=== PATIENT | male | born 1945 | race Caucasian/White ===

== ENCOUNTER → 2016-09-15 | Outpatient (CLI) | payer BC ==
[~2016-09-15] MED LIST: ASPI81TA28 PO; ATOR-22 PO; INSUINJ4; MULT-884 PO; MXZC25 PO
[2016-09-15 12:45] LABS: ESTIMATED AVERAGE GLUCOSE 226 mg/dl; HA1C FLAG Normal (Normal)
[2016-09-15 13:23] LABS: RATIO 12.2 mcg/mg (0-30.0)
[2016-09-15 13:29] LABS: ALT/SGPT 27 U/L (12-78); AST/SGOT 19 U/L (15-37); BLOOD UREA NITROGEN 23 mg/dl (7-18); BUN/CREATININE RATIO 20.9 (10-20); CALCIUM 9.1 mg/dl (8.5-10.1); CARBON DIOXIDE 30 mmol/L (21-32); CHLORIDE 102 mmol/L (98-107); GLUCOSE 101 mg/dl (70-99); SODIUM 140 mmol/L (136-145)
[2016-09-15 13:31] LABS: ALKALINE PHOSPHATASE 92 U/L (45-117)
--- NOTE | 2016-09-19 10:53 | CODING QUERY MEDICAL NECESSITY ---
SUPPORTING DIAGNOSIS NEEDED A supporting diagnosis is required for the test/procedure performed on this patient in order for us to be reimbursed by the patient's insurance. Please provide a supporting diagnosis for the following test/procedure listed below next to the test name along with your signature. *If there is no additional diagnosis for this patient that would support the following test/procedure please document that below next to the test/procedure. Test(s)/Procedure(s) that require a supporting diagnosis: DOS 09/15 * Hba1c DIAGNOSIS: Provider Signature: Date: Thank you Penny Paredes Health Information Management Once completed, please kindly fax back to [phone] For questions please call [phone]
== END | disposition home or self-care (01) ==
LOC: C.LABPVFM 08:30
PROVIDERS: ATTEND Family Medicine
DX: E78.5 Hyperlipidemia, unspecified (principal); E11.65 Type 2 diabetes mellitus with hyperglycemia

== ENCOUNTER → 2017-01-15 | Outpatient (CLI) | payer BC ==
[2017-01-15 13:12] LABS: ALT/SGPT 25 U/L (12-78); AST/SGOT 16 U/L (15-37); BLOOD UREA NITROGEN 23 mg/dl (7-18); BUN/CREATININE RATIO 20.9 (10-20); CARBON DIOXIDE 29 mmol/L (21-32); CHLORIDE 104 mmol/L (98-107); CHOLESTEROL 108 mg/dl (0-200); GLUCOSE 95 mg/dl (70-99); POTASSIUM 3.8 mmol/L (3.5-5.1); SODIUM 141 mmol/L (136-145)
[2017-01-15 13:13] LABS: ESTIMATED AVERAGE GLUCOSE 212 mg/dl; HA1C FLAG Normal (Normal)
[2017-01-15 13:15] LABS: ALB/GLOB RATIO 0.9 (0.9-2); ALKALINE PHOSPHATASE 89 U/L (45-117); CHOLESTEROL/HDL RATIO 2.8; HDL CHOLESTEROL 39 mg/dl; LDL CHOLESTEROL CALCULATED 53 mg/dl; TRIGLYCERIDES 80 mg/dl (0-150); VERY LOW DENSITY LIPOPROT CALC 16 mg/dl
[2017-01-15 13:33] LABS: CALCIUM 9.1 mg/dl (8.5-10.1)
== END | disposition home or self-care (01) ==
LOC: C.LABPVFM 09:36
PROVIDERS: ATTEND Family Medicine
DX: I10 Essential (primary) hypertension (principal); E11.65 Type 2 diabetes mellitus with hyperglycemia; E78.5 Hyperlipidemia, unspecified; E66.9 Obesity, unspecified; Z68.30 Body mass index [BMI] 30.0-30.9, adult

== ENCOUNTER → 2017-04-09 | Outpatient (CLI) | payer BC ==
[2017-04-09 20:10] LABS: SYNOVIAL FLUID APPEARANCE CLOUDY; SYNOVIAL FLUID COLOR PALE YELLOW; SYNOVIAL FLUID MONONUC RELAT 5.9 %; SYNOVIAL FLUID POLYNUC RELAT 94.1 %
[2017-04-09 20:27] LABS: LYME DISEASE AB IGG NEG (NEG); LYME DISEASE AB IGM NEG (NEG)
[2017-04-16 09:51] LABS: 18KDIGG BAND NONREACTIVE (NONREACTIVE); 23KDIGG BAND NONREACTIVE (NONREACTIVE); 23KDIGM BAND NONREACTIVE (NONREACTIVE); 28KDIGG BAND NONREACTIVE (NONREACTIVE); 30KDIGG BAND NONREACTIVE (NONREACTIVE); 39KDIGG BAND NONREACTIVE (NONREACTIVE); 39KDIGM BAND NONREACTIVE (NONREACTIVE); 41KDIGG BAND REACTIVE (NONREACTIVE); 41KDIGM BAND NONREACTIVE (NONREACTIVE); 45KDIGG BAND NONREACTIVE (NONREACTIVE); 58KDIGG BAND NONREACTIVE (NONREACTIVE); 66KDIGG BAND REACTIVE (NONREACTIVE); 93KDIGG BAND NONREACTIVE (NONREACTIVE)
== END | disposition home or self-care (01) ==
LOC: C.LAB 18:36
PROVIDERS: ATTEND Physician Assistant
DX: M25.40 Effusion, unspecified joint (principal)

== ENCOUNTER → 2017-04-09 | Outpatient (CLI) | payer BC ==
--- NOTE | 2017-04-09 16:12 | DIAGNOSTIC IMAGING REPORT ---
RIGHT KNEE 3 VIEWS HISTORY: 71 years-old Male RIGHT KNEE PAIN Right COMPARISON: None available TECHNIQUE: Frontal, crosstable lateral and sunrise views of the right knee FINDINGS: No acute fracture or dislocation is identified. Tricompartmental osteoarthritis is noted, most pronounced within the medial and patellofemoral joints where there is mild to moderate disease. Chondrocalcinosis is noted within the medial compartment. Intramedullary nail is partially imaged within the distal femur. There is a large joint effusion containing apparent calcifications. Ossifications are seen about the posterior femur. IMPRESSION: 1. Large joint effusion without acute fracture or dislocation. 2. Tricompartmental osteoarthritis, most pronounced within the medial and patellofemoral compartments. 3. Ossifications about the posterior femur are noted which may reflect intra-articular loose bodies. The above report was generated using voice recognition software. It may contain grammatical, syntax or spelling errors. Electronically signed by: Seb Howard M.D. 04/09/2017 4:11 PM Dictated Date/Time: 04/09/2017 4:08 PM
== END | disposition home or self-care (01) ==
LOC: C.RADPV 15:49
PROVIDERS: ATTEND Nurse Practitioner Family
DX: M25.561 Pain in right knee (principal); M17.11 Unilateral primary osteoarthritis, right knee; M25.461 Effusion, right knee

== ENCOUNTER → 2017-04-22 | Outpatient (CLI) | payer BC ==
[2017-04-22 13:18] LABS: ESTIMATED AVERAGE GLUCOSE 180 mg/dl; HA1C FLAG Normal (Normal)
[2017-04-22 13:53] LABS: ALT/SGPT 24 U/L (12-78); BLOOD UREA NITROGEN 20 mg/dl (7-18); BUN/CREATININE RATIO 20.3 (10-20); CALCIUM 9.4 mg/dl (8.5-10.1); CARBON DIOXIDE 30 mmol/L (21-32); CHLORIDE 103 mmol/L (98-107); GLUCOSE 77 mg/dl (70-99); POTASSIUM 3.8 mmol/L (3.5-5.1); SODIUM 138 mmol/L (136-145)
[2017-04-22 13:56] LABS: ALB/GLOB RATIO 0.9 (0.9-2); ALKALINE PHOSPHATASE 86 U/L (45-117); AST/SGOT 18 U/L (15-37)
== END | disposition home or self-care (01) ==
LOC: C.LABPVFM 08:44
PROVIDERS: ATTEND Family Medicine
DX: E11.65 Type 2 diabetes mellitus with hyperglycemia (principal); E78.5 Hyperlipidemia, unspecified; I10 Essential (primary) hypertension

== ENCOUNTER → 2017-09-07 | Outpatient (CLI) | payer BC ==
[2017-09-07 12:45] LABS: HEMOGLOBIN A1C 8.1 % (4.5-5.6)
[2017-09-07 12:52] LABS: ALBUMIN 3.7 gm/dl (3.4-5.0); ALT/SGPT 26 U/L (12-78); AST/SGOT 16 U/L (15-37); BLOOD UREA NITROGEN 20 mg/dl (7-18); CALCIUM 9.2 mg/dl (8.5-10.1); CARBON DIOXIDE 30 mmol/L (21-32); CHOLESTEROL 125 mg/dl (0-200); CREATININE 0.92 mg/dl (0.60-1.40); GLUCOSE 141 mg/dl (70-99); POTASSIUM 4.1 mmol/L (3.5-5.1); SODIUM 138 mmol/L (136-145)
[2017-09-07 12:55] LABS: ALKALINE PHOSPHATASE 79 U/L (45-117); LDL CHOLESTEROL CALCULATED 62 mg/dl; TOTAL PROTEIN 7.5 gm/dl (6.4-8.2)
== END | disposition home or self-care (01) ==
LOC: C.LABPVFM 08:26
PROVIDERS: ATTEND Family Medicine
DX: I10 Essential (primary) hypertension (principal); E11.65 Type 2 diabetes mellitus with hyperglycemia; E78.5 Hyperlipidemia, unspecified; E66.9 Obesity, unspecified; R21 Rash and other nonspecific skin eruption; L71.9 Rosacea, unspecified

== ENCOUNTER → 2018-01-06 | Outpatient (CLI) | payer BC ==
[2018-01-06 13:28] LABS: HEMOGLOBIN A1C 8.2 % (4.5-5.6)
[2018-01-06 14:04] LABS: BLOOD UREA NITROGEN 22 mg/dl (7-18); CALCIUM 9.1 mg/dl (8.5-10.1); CARBON DIOXIDE 31 mmol/L (21-32); CREATININE 1.13 mg/dl (0.60-1.40); GLUCOSE 101 mg/dl (70-99); SODIUM 138 mmol/L (136-145)
== END | disposition home or self-care (01) ==
LOC: C.LABPVFM 08:21
PROVIDERS: ATTEND Family Medicine
DX: I10 Essential (primary) hypertension (principal); E11.65 Type 2 diabetes mellitus with hyperglycemia; E78.5 Hyperlipidemia, unspecified; R42 Dizziness and giddiness; E66.9 Obesity, unspecified; Z68.30 Body mass index [BMI] 30.0-30.9, adult

== ENCOUNTER 2022-09-14 02:14 | Inpatient (IN) ==
--- NOTE | 2022-09-14 02:31 | Emergency Department Note ---
History of Present Illness General Chief complaint: Hypoglycemia Stated complaint: HYPOGLYCEMIC Time Seen by Provider: 09/14/22 02:19 History of Present Illness 77-year-old male with a history of diabetes presents via EMS with reported change in mental status at home had sonorous respirations and reportedly was diaphoretic. Patient's blood sugar was 36 per EMS the patient was given 250 mL of D10 prior to arrival; may have fallen out of bed as well. Patient also had a recent fall and has rib fractures. Patient is a poor historian as to his presentation due to alteration in mental status Home Medications Medication Instructions Recorded Confirmed Type multivitamin (Daily Multi-Vitamin 1 tab PO DAILY 02/05/19 09/02/22 History tablet) aspirin 81 mg tablet 81 mg PO DAILY #90 tabs 08/13/19 09/02/22 History lancets (Accu-Chek Softclix #100 ea 02/24/20 09/02/22 Rx Lancets) cholecalciferol (vitamin D3) 125 125 mcg PO DAILY #90 caps 12/11/20 09/02/22 Rx mcg (5,000 unit) capsule pen needle, diabetic 32 gauge x #100 ea 07/29/21 09/02/22 Rx 1/4" (Sure Comfort Pen Needle) atorvastatin 20 mg tablet 20 mg PO DAILY hyperlipidemia #90 10/14/21 09/02/22 Rx tabs amlodipine 5 mg tablet 5 mg PO DAILY #90 tabs 02/21/22 09/02/22 Rx triamterene 37.5 1 cap PO DAILY #90 caps 02/24/22 09/02/22 Rx mg-hydrochlorothiazide 25 mg capsule blood sugar diagnostic (Accu-Chek See Rx Instructions .Route 03/24/22 09/02/22 Rx Greta Plus test strips) .COMPLEX #100 strips dulaglutide 1.5 mg/0.5 mL 1.5 mg (0.5 mL) subcut Q7D 90 days 04/15/22 09/02/22 Rx subcutaneous pen injector #6.5 mL (Trulicity) insulin glargine 100 unit/mL (3 30 unit (0.3 mL) subcut BID 3 04/17/22 09/02/22 Rx mL) subcutaneous pen months #54 mL labetalol 100 mg tablet 150 mg PO BID #270 tabs 05/02/22 09/02/22 Rx blood-glucose meter (Accu-Chek #1 ea 09/09/22 Rx Greta Plus Meter) Allergies Allergy/AdvReac Type Severity Reaction Status Date / Time lisinopril Allergy Intermediate itching Verified 09/02/22 14:54 and swelling metformin Allergy Intermediate swelling Verified 09/02/22 14:54 empagliflozin AdvReac Mild constipatio Verified 09/02/22 14:54 [From Jardiance] n Past Med/Surg History Medical History Chews tobacco Obesity (BMI 30.0-34.9) Tubular adenoma of colon Surgical History No pertinent past surgical history Family History Father Cancer colon cancer Colorectal cancer Sister Cancer liver Lung cancer Mother Cancer Brain cancer Myocardial infarction Family/Other Hypertension Denies family history of Ovarian cancer Prostate cancer Breast cancer Social History Smoking Status: Former smoker Tobacco Type: Smokeless Tobacco (Dip or Chew) Second Hand Exposure: No; Hx Alcohol Use: Yes Hx Substance Use: No Preferred Language: Samoan Communication Ability: Effective marital status: Current Living Situation: Spouse current occupational status: retired How many Children do You have: 3 Feels Safe at Home: Yes Childhood Exposure to Second-Hand Smoke: No caffeine: Yes Dental Care, Regularly: No Physical Activity Frequency: Daily Seatbelt Use: always Sunscreen Use: No Review of Systems Unobtainable due to cognitive status Physical Exam Vital Signs Vital Signs - 24 hr 09/14/22 02:33 09/14/22 02:25 09/14/22 03:06 Temperature 33.2 C L Temperature Source Rectal Pulse Rate 51 L 51 L Pulse Rate from SpO2 Sensor 48 L Pulse Rhythm Irregular Pulse Strength Normal Respiratory Rate 17 15 Respiratory Effort / Characteristics Non-Labored Respiratory Depth Normal Respiratory Pattern Regular Blood Pressure 146/72 H 132/58 L Blood Pressure Mean 96 82 Blood Pressure Position Sitting Pulse Oximetry 97 97 99 Oxygen Delivery Method Room Air Room Air Nasal Cannula Oxygen Flow Rate 4 Sepsis Recent Fever Within 48 Hours No Sepsis New/Unexplained Change in Mental Status N/A Sepsis Action Taken by Nursing No Action Required 09/14/22 03:23 09/14/22 03:30 09/14/22 03:30 Temperature 31.6 C L Temperature Source Arreola Cath ( Temp Sensing) Pulse Rate 50 L 51 L Pulse Rate from SpO2 Sensor 56 L 49 L Pulse Rhythm Pulse Strength Respiratory Rate 12 14 Respiratory Effort / Characteristics Respiratory Depth Respiratory Pattern Blood Pressure 133/58 L 106/58 L Blood Pressure Mean 83 74 Blood Pressure Position Pulse Oximetry 100 99 Oxygen Delivery Method Nasal Cannula Nasal Cannula Oxygen Flow Rate 4 4 Sepsis Recent Fever Within 48 Hours Sepsis New/Unexplained Change in Mental Status Sepsis Action Taken by Nursing 09/14/22 03:43 09/14/22 03:46 09/14/22 03:58 Temperature 32.8 C L Temperature Source Arreola Cath ( Temp Sensing) Pulse Rate 48 L 46 L Pulse Rate from SpO2 Sensor 53 L 51 L Pulse Rhythm Pulse Strength Respiratory Rate 17 17 Respiratory Effort / Characteristics Respiratory Depth Respiratory Pattern Blood Pressure 125/67 140/51 L Blood Pressure Mean 86 80 Blood Pressure Position Pulse Oximetry 98 99 Oxygen Delivery Method Nasal Cannula Nasal Cannula Oxygen Flow Rate 4 4 Sepsis Recent Fever Within 48 Hours Sepsis New/Unexplained Change in Mental Status Sepsis Action Taken by Nursing GENERAL: Patient is awake alert in no acute distress EYES: The conjunctivae are clear. The pupils are round and reactive. EARS, NOSE, MOUTH AND THROAT: The nose is without any evidence of any deformity. Mucous membranes are moist. Tongue is midline. NECK: The neck is nontender and supple. RESPIRATORY: Normal respiratory effort is noted there is no evidence of wheezing rhonchi or rales CARDIOVASCULAR: Regular rate and rhythm noted there no murmurs rubs or gallops normal S1 normal S2. GASTROINTESTINAL: The abdomen is soft. Abdomen is nontender. BACK: No midline tenderness or or step-off noted range of motion in flexion extension as well as rotation no signs of muscle spasm noted MUSCULOSKELETAL/EXTREMITIES: There is no evidence of gross deformity full range of motion is noted in the hips and shoulders. SKIN: There is no obvious evidence of any rash. There are no petechiae, pallor or cyanosis noted. NEUROLOGIC: Patient is awake alert and oriented x1 Course Reevaluation(s) Reevaluation #1: Patient was monitored for hypoglycemia, patient is on a Judit hugger. The patient is hypothermic. Patient will be admitted for further evaluation Time: 04:09 Consultations Consultation #1: [facility] Time: 04:10 Critical Care Time Critical Care Time: Yes Total Critical Care Time: 50 I have personally spent greater than 50 minutes of critical care time in the direct management of this patient. This includes bedside care, interpretation of diagnostic studies, and testing, discussion with consultants, patient, and family members, and other required patient management activities. These minutes are in excess of all separately billable procedures. Medical Decision Making Medical Records Attestation: I reviewed the patient's medical records. Home Medications Current Medication List: was personally reviewed by me Laboratory Data Attestation: I reviewed the patient's lab results. 09/14/22 02:30 09/14/22 02:30 Lab Results 09/14/22 09/14/22 09/14/22 Range/Units 02:20 02:30 02:30 WBC 12.27 H (4.8-10.8) K/ul RBC 3.81 L (4.70-6.10) M/uL Hgb 12.4 L (14.0-18.0) g/dl Hct 35.5 L (42.0-52.0) % MCV 93.2 (80.0-100.0) fL MCH 32.5 (25.0-34.0) pg MCHC 34.9 (32.0-36.0) g/dL RDW Std Deviation 43.2 (36.4-46.3) fL RDW Coeff of Leon 12.6 (11.5-14.5) % Plt Count 287 (130-400) K/uL MPV 9.3 L (9.4-12.4) fL Immature Gran % (Auto) 0.6 % Neut % (Auto) 76.0 % Lymph % (Auto) 15.5 % [place] % (Auto) 5.7 % Eos % (Auto) 1.6 % Baso % (Auto) 0.6 % Neut # (Auto) 9.33 H (1.40-6.50) K/uL Lymph # (Auto) 1.90 (1.2-3.4) K/uL [place] # (Auto) 0.70 H (0.11-0.59) K/uL Eos # (Auto) 0.20 (0-0.50) K/uL Baso # (Auto) 0.07 (0-0.2) K/uL Immature Gran # (Auto) 0.07 (0.01-0.20) K/uL PT 11.4 (9.0-12.0) Seconds INR 1.1 (0.9-1.1) Sodium (136-145) mmol/L Potassium (3.5-5.1) mmol/L Chloride (98-107) mmol/L Carbon Dioxide (21-32) mmol/L Anion Gap (3-11) BUN (6-23) mg/dl Creatinine (0.6-1.4) mg/dl Est Cr Clr Drug Dosing ml/min Est GFR ( Amer) ml/min Est GFR (Non-Af Amer) ml/min BUN/Creatinine Ratio (10-20) Glucose (70-99(Fasting)) mg/dl POC Glucose 241 H (70-99) mg/dl Calcium (8.5-10.1) mg/dl Magnesium (1.7-2.4) mg/dl Total Bilirubin (0.2-1.0) mg/dl AST (13-39) U/L ALT (7-52) U/L Alkaline Phosphatase (34-104) U/L Troponin I High Sens (0-20) pg/ml Total Protein (6.0-8.3) gm/dl Albumin (3.4-5.0) gm/dl Globulin (2.5-4.0) gm/dl Albumin/Globulin Ratio (0.9-2) Urine Color Urine Appearance (Clear) Urine pH (4.5-7.5) Ur Specific [place] (1.000-1.030) Urine Protein (Negative) Urine Glucose (UA) (Negative) Urine Ketones (Negative) Urine Blood (Negative) Urine Nitrite (Negative) Urine Bilirubin (Negative) Urine Urobilinogen (Negative) Ur Leukocyte Esterase (Negative) Urine WBC (Auto) (0-5) /hpf Urine RBC (Auto) (0-4) /hpf U Hyaline Cast (Auto) (0-5) /lpf U Epithel Cells (Auto) (0-5) /lpf Urine Bacteria (Auto) (Negative) 09/14/22 09/14/22 Range/Units 02:30 03:20 WBC (4.8-10.8) K/ul RBC (4.70-6.10) M/uL Hgb (14.0-18.0) g/dl Hct (42.0-52.0) % MCV (80.0-100.0) fL MCH (25.0-34.0) pg MCHC (32.0-36.0) g/dL RDW Std Deviation (36.4-46.3) fL RDW Coeff of Leon (11.5-14.5) % Plt Count (130-400) K/uL MPV (9.4-12.4) fL Immature Gran % (Auto) % Neut % (Auto) % Lymph % (Auto) % [place] % (Auto) % Eos % (Auto) % Baso % (Auto) % Neut # (Auto) (1.40-6.50) K/uL Lymph # (Auto) (1.2-3.4) K/uL [place] # (Auto) (0.11-0.59) K/uL Eos # (Auto) (0-0.50) K/uL Baso # (Auto) (0-0.2) K/uL Immature Gran # (Auto) (0.01-0.20) K/uL PT (9.0-12.0) Seconds INR (0.9-1.1) Sodium 137 (136-145) mmol/L Potassium 3.8 (3.5-5.1) mmol/L Chloride 101 (98-107) mmol/L Carbon Dioxide 30 (21-32) mmol/L Anion Gap 6 (3-11) BUN 34 H (6-23) mg/dl Creatinine 1.39 (0.6-1.4) mg/dl Est Cr Clr Drug Dosing 49.9 ml/min Est GFR ( Amer) 56.3 ml/min Est GFR (Non-Af Amer) 48.5 ml/min BUN/Creatinine Ratio 24.5 H (10-20) Glucose 161 H (70-99(Fasting)) mg/dl POC Glucose (70-99) mg/dl Calcium 9.0 (8.5-10.1) mg/dl Magnesium 2.2 (1.7-2.4) mg/dl Total Bilirubin 0.4 (0.2-1.0) mg/dl AST 18 (13-39) U/L ALT 18 (7-52) U/L Alkaline Phosphatase 100 (34-104) U/L Troponin I High Sens 4.3 (0-20) pg/ml Total Protein 6.7 (6.0-8.3) gm/dl Albumin 3.8 (3.4-5.0) gm/dl Globulin 2.9 (2.5-4.0) gm/dl Albumin/Globulin Ratio 1.3 (0.9-2) Urine Color Yellow Urine Appearance Clear (Clear) Urine pH 6.5 (4.5-7.5) Ur Specific [place] 1.018 (1.000-1.030) Urine Protein Negative (Negative) Urine Glucose (UA) Negative (Negative) Urine Ketones Negative (Negative) Urine Blood Trace H (Negative) Urine Nitrite Negative (Negative) Urine Bilirubin Negative (Negative) Urine Urobilinogen Negative (Negative) Ur Leukocyte Esterase Negative (Negative) Urine WBC (Auto) 0 (0-5) /hpf Urine RBC (Auto) 5-10 H (0-4) /hpf U Hyaline Cast (Auto) 0 (0-5) /lpf U Epithel Cells (Auto) 10-20 H (0-5) /lpf Urine Bacteria (Auto) Negative (Negative) Imaging Data Attestation: I personally reviewed and interpreted this imaging study as follows: My Impression: Chest x-ray interpreted by me negative for infiltrate CT of the brain reviewed by me and appreciate stat rad interpretation Radiologist's Impression: Patient: PAOLA PIERCE (Male) : 45 Status: ER Date: 09/14/22 03:00 Room #: History: ALTERED MENTAL STATUS , CONFUSION Slices: 58 Priors: Tech: Cresencio Escalante @ [phone] Exams: CT HEAD Contrast: Accession Numbers: [id number] Referring Physician: SAMIR LOPEZ Preliminary Findings Only See Final Report For Complete Findings CT HEAD: No acute intracranial pathology. Radiologist: Nicholas Miramontes MD ECG Data Attestation: I personally reviewed and interpreted this ECG as follows: Additional Comments: EKG interpreted by me sinus bradycardia versus junctional with a first-degree AV block no obvious ST segment elevation or depression normal axis MDM Narrative Medical decision making differential diagnosis includes hypoglycemia, insulin reaction, seizure, TIA, metabolic derangement Plan is to check labs, CT, observe, recheck blood sugar EMS records were reviewed for this patient's presentation Nursing notes were reviewed by me and appreciated Patient had an alteration mental status, patient may have had a hypoglycemic seizure, patient is hypothermic, there is no current evidence of sepsis. My concern is the patient has hypothermia and hypoglycemia and may have had a hypoglycemic seizure. Patient warrants admission for further observation and to improve the patient's core temperature Impression & Plan Hypoglycemia, Acute alteration in mental status, Hypothermia Discharge Plan Visit Data Chief Complaint: Hypoglycemia Stated Complaint: HYPOGLYCEMIC ED Provider: Samir Lopez Discharge Problem: Hypoglycemia, Acute alteration in mental status, Hypothermia Patient Disposition: Admitted As Inpatient Forms Stand Alone Forms: My [facility] Prescriptions Prescriptions: No Action (DME) pen needle, diabetic [Sure Comfort Pen Needle] 32 gauge x 1/4" needle See Dose Instructions .ROUTE .MEDSUPPLY Qty: 100 5RF Dose Instruction: As directed Rx Instructions: use 3 daily atorvastatin 20 mg tablet 20 mg PO DAILY Qty: 90 3RF triamterene-hydrochlorothiazid 37.5-25 mg capsule 1 cap PO DAILY Qty: 90 3RF Trulicity 1.5 mg/0.5 mL pen injector 1.5 mg subcut Q7D 90 Days Qty: 6.5 3RF insulin glargine 100 unit/mL (3 mL) insulin pen 30 unit subcut BID 90 Days Qty: 54 3RF Rx Instructions: 3 month supply labetalol 100 mg tablet 150 mg PO BID Qty: 270 3RF (DME) blood-glucose meter [Accu-Chek Greta Plus Meter] [facility] See Rx Instructions .Route Qty: 1 0RF Rx Instructions: As directed TEST TWICE A DAY E11.69 cholecalciferol (vitamin D3) 125 mcg (5,000 unit) capsule 125 mcg PO DAILY Qty: 90 3RF amlodipine 5 mg tablet 5 mg PO DAILY Qty: 90 3RF Accu-Chek Greta Plus test strp Strip See Rx Instructions .ROUTE .COMPLEX Qty: 100 11RF Dose Instruction: TEST BLOOD SUGAR TWICE DAILY Rx Instructions: TEST BLOOD SUGAR TWICE DAILY; E11.65 multivitamin [Daily Multi-Vitamin] tablet 1 tab PO DAILY aspirin 81 mg tablet 81 mg PO DAILY Qty: 90 (DME) lancets [Accu-Chek Softclix Lancets] Misc See Dose Instructions .ROUTE .MEDSUPPLY Qty: 100 3RF Dose Instruction: As directed Rx Instructions: test BID Referrals Referrals: Christiano Plaza DO [Primary Care Provider] -
[2022-09-14 02:43] LABS: Basophils # (auto) 0.07 K/uL (0-0.2); Basophils % (auto) 0.6 %; Eosinophils % (auto) 1.6 %; Hematocrit (blood only) 35.5 % (42.0-52.0); Hemoglobin 12.4 g/dl (14.0-18.0); Immature Granulocytes # (auto) 0.07 K/uL (0.01-0.20); Immature Granulocytes % (auto) 0.6 %; Lymphocytes % (auto) 15.5 %; Mean Corpuscular Hemoglobin 32.5 pg (25.0-34.0); Mean Corpuscular Hgb Conc 34.9 g/dL (32.0-36.0); Mean Corpuscular Volume 93.2 fL (80.0-100.0); Mean Platelet Volume 9.3 fL (9.4-12.4); Monocytes % (auto) 5.7 %; Neutrophils # (auto) 9.33 K/uL (1.40-6.50); Platelet Count 287 K/uL (130-400); RDW Coefficient of Variation 12.6 % (11.5-14.5); RDW Standard Deviation 43.2 fL (36.4-46.3); Red Blood Count 3.81 M/uL (4.70-6.10); White Blood Count 12.27 K/ul (4.8-10.8)
[2022-09-14 02:53] LABS: INR 1.1 (0.9-1.1); Prothrombin Time 11.4 Seconds (9.0-12.0)
[2022-09-14 03:15] LABS: Troponin I High Sensitivity 4.3 pg/ml (0-20)
[2022-09-14 03:17] LABS: Albumin Level 3.8 gm/dl (3.4-5.0); Bilirubin,Total 0.4 mg/dl (0.2-1.0); Magnesium 2.2 mg/dl (1.7-2.4); Potassium 3.8 mmol/L (3.5-5.1)
[2022-09-14 03:23] LABS: Albumin Globulin Ratio 1.3 (0.9-2); BUN Creatinine Ratio 24.5 (10-20); Creatinine Clr Calc Pharmacy 49.9 ml/min; Est GFR (African American) 56.3 ml/min; Est GFR (Non-African American) 48.5 ml/min; Globulin 2.9 gm/dl (2.5-4.0); Total Protein 6.7 gm/dl (6.0-8.3)
[2022-09-14 03:32] LABS: Appearance Urine Clear (Clear); Bacteria Urine Automated Negative (Negative); Bilirubin Urine Negative (Negative); Blood Urine Trace (Negative); Cast Urine Automated 0 /lpf (0-5); Color Urine Yellow; Glucose Urine UA Negative (Negative); Ketones Urine Negative (Negative); Leukocyte Esterase Urine Negative (Negative); Nitrite Urine Negative (Negative); Protein Urine Negative (Negative); Specific Gravity Urine 1.018 (1.000-1.030); Urobilinogen Urine Negative (Negative); WBC Urine Automated 0 /hpf (0-5); pH Urine 6.5 (4.5-7.5)
[2022-09-14] MEDS ORDERED: ONDANSETRON INJ 2 MG/ML 2 ML VIAL IV STA (04:40)
[2022-09-14] MEDS ORDERED: GLUCAGON 3 MG in SYRINGE 0 ML IV ONE (04:45)
--- NOTE | 2022-09-14 04:49 | History & Physical Report ---
Date of Service September 14, 2022 Assessment & Plan (1) Hypoglycemia: (2) Hypothermia: (3) Acute alteration in mental status: (4) Diabetes: (5) Hyperlipidemia: Plan: 77-year-old male with history of diabetes on insulin therapy, hyperlipidemia presenting with acute episode of agitation, somnolence in setting of hypoglycemia with blood sugar of 36. Patient presently hypothermic, bradycardic. He is somnolent but arousable, answering questions appropriately. 1. Neurologicalpatient with acute alteration in mental status, episode of agitation with screaming prior to arrival. Patient now somnolent but arousable. Does not recall the events prior to arrival. Neurological exam is nonfocal. CT of the head is unremarkable. In the setting of hypoglycemia question possible seizure., Encephalopathy secondary to hypoglycemia. Maintain seizure precautions Frequent orientation Monitor blood sugar q. hourly Patient hypothermic. Rectal temperature upon arrival = 33.2. Temperature sensing Arreola was placed with temperature recorded initially at 32.2. Presently has increased with use of external warming blanket to 33.8. Etiology of hypothermia uncertain at this time. Most likely secondary to hypoglycemic episode. Have checked lactate and procalcitonin both of which are normal. Blood cultures have been sent and pending. No obvious source of infection or sepsis. TSH is normal at 2.56, random cortisol is normal at 32.97. Consideration given to possible beta-chana overdose given bradycardia, confusion/somnolence as well as hypoglycemia. Patient is on labetalol 150 mg p.o. twice daily. Blood pressure has been normal. Glucose presently elevated over 200. Would not administer glucagon at this time. We will continue warming blanket 2. Cardiovascularpatient with bradycardia, heart rate ranging 30s to 50s. Uncertain if secondary to hypothermia. Heart rate does increase to mid 50s60s when patient is awakened and speaking then decreases again with sleep. Patient with history of hypertension Check Lyme Check toxicology profile Continue rewarming with bear hugger If bradycardia persists would consider cardiology consultation Atropine as needed We will hold amlodipine and labetalol and triamterene/hydrochlorothiazide for now Continue aspirin 3. Pulmonarypatient with adequate oxygenation on 4 L by nasal cannula. He does display sonorous respirations and episodes of apnea. He reports never having a sleep study. BiPAP nightly as tolerated 4. Gastrointestinalno active issues 5. Genitourinaryno active issues. BUN and creatinine are near baseline. Arreola in place. Monitor urine output Monitor electrolytes and renal function 6. IDelevated WBC = 12.2. Patient is afebrile but hypothermic as described above. No obvious source of infection. Lactate and procalcitonin are within normal limits Follow cultures. No empiric antibiotics for now Check MRSA nares 7. Endocrinepatient with diabetes on insulin therapy as well as Trulicity which was recently added approximately 1 month ago. Presents with episode of hypoglycemia, blood sugar per EMS = 36. Could be underlying cause of patient's condition at presentconfusion, hypothermia and bradycardia. Blood sugar presently over 200 after administration of D10 in the field We will hold all insulin for now Fingerstick q. hourly F/E/NLR 500 mL bolus then 125 mL/h x 1 L, electrolytes within normal limits, n.p.o. for now until mental status improves Ppx:Lovenox Codefull per discussion with patient Dispositionadmit to MICU History of Present Illness Chief Complaint: hypothermia, hypoglycemia Primary Care Provider: Christiano Plaza DO Domingo Cerda is a 77yo male with history of DM on insulin therapy, HLP presenting from home with confusion, somnolence, hypoglycemia and hypothermia. History obtained mostly from at bedside and from discussion with ER staff and chart review as patient is somnolent and does not recall events prior to arrival. reports that patient was in his usual state of health today. He ate dinner around 16:30 - had a pork chop, mashed potatoes and gravy, beans and a roll. She reports he finished his dinner and had some ice cream around 20:00. Patient was getting ready for bed and took his insulin injection around 23:30. reports that approximately 15 minutes later patient started behaving very erratically. He started rolling around in the bed, thrashing and screaming. He grabbed at his 's arm and would not respond to questions or open his eyes. He was also very diaphoretic. called EMS. Patient did roll out of bed but did not seem to hit his head. Per EMS blood sugar on arrival = 36. He was given 250 mL of D10 with an increase in blood sugar to 180. Upon arrival to the ER patient hypothermic, bradycardic, adequate oxygenation on room air. A temperature sensing Arreola was placed for core temperature monitoring as well as a bear hugger blanket. Patient with variable heart rate ranging from the 30s to the 50s. External pacer pads placed. Allergies Allergy/AdvReac Type Severity Reaction Status Date / Time lisinopril Allergy Intermediate itching Verified 09/02/22 14:54 and swelling metformin Allergy Intermediate swelling Verified 09/02/22 14:54 empagliflozin AdvReac Mild constipatio Verified 09/02/22 14:54 [From Carlo] n Home Medications Medication Instructions Recorded Confirmed Type multivitamin (Daily Multi-Vitamin 1 tab PO DAILY 02/05/19 09/02/22 History tablet) aspirin 81 mg tablet 81 mg PO DAILY #90 tabs 08/13/19 09/02/22 History lancets (Accu-Chek Softclix #100 ea 02/24/20 09/02/22 Rx Lancets) cholecalciferol (vitamin D3) 125 125 mcg PO DAILY #90 caps 12/11/20 09/02/22 Rx mcg (5,000 unit) capsule pen needle, diabetic 32 gauge x #100 ea 07/29/21 09/02/22 Rx 1/4" (Sure Comfort Pen Needle) atorvastatin 20 mg tablet 20 mg PO DAILY hyperlipidemia #90 10/14/21 09/02/22 Rx tabs amlodipine 5 mg tablet 5 mg PO DAILY #90 tabs 02/21/22 09/02/22 Rx triamterene 37.5 1 cap PO DAILY #90 caps 02/24/22 09/02/22 Rx mg-hydrochlorothiazide 25 mg capsule blood sugar diagnostic (Accu-Chek See Rx Instructions .Route 03/24/22 09/02/22 Rx Greta Plus test strips) .COMPLEX #100 strips dulaglutide 1.5 mg/0.5 mL 1.5 mg (0.5 mL) subcut Q7D 90 days 04/15/22 09/02/22 Rx subcutaneous pen injector #6.5 mL (Trulicity) insulin glargine 100 unit/mL (3 30 unit (0.3 mL) subcut BID 3 04/17/22 09/02/22 Rx mL) subcutaneous pen months #54 mL labetalol 100 mg tablet 150 mg PO BID #270 tabs 05/02/22 09/02/22 Rx blood-glucose meter (Accu-Chek #1 ea 09/09/22 Rx Greta Plus Meter) Past Med/Surg History Medical History (Updated 09/14/22 @ 05:26 by Mavis Salas DO) Diabetes Hyperlipidemia Obesity (BMI 30.0-34.9) Tubular adenoma of colon Surgical History No pertinent past surgical history Family History Father Cancer colon cancer Colorectal cancer Sister Cancer liver Lung cancer Mother Cancer Brain cancer Myocardial infarction Family/Other Hypertension Denies family history of Ovarian cancer Prostate cancer Breast cancer Social History Smoking Status: Former smoker Tobacco Type: Smokeless Tobacco (Dip or Chew) Second Hand Exposure: No; Hx Alcohol Use: Yes Hx Substance Use: No Preferred Language: Faroese Communication Ability: Effective marital status: Current Living Situation: Spouse current occupational status: retired How many Children do You have: 3 Feels Safe at Home: Yes Childhood Exposure to Second-Hand Smoke: No caffeine: Yes Dental Care, Regularly: No Physical Activity Frequency: Daily Seatbelt Use: always Sunscreen Use: No Review of Systems Review of Systems: Unobtainable due to reduced consciousness Per , no reported fever, chills, chest pain, cough, shortness of breath, abdominal pain, nausea, vomiting, diarrhea, constipation Patient has had decline in memory in recent months Physical Exam Physical Exam: General: Patient somnolent, arousable to voice, alert to self and hospital. Does not recall events prior to arrival Skin: warm, dry, intact, no rashes or lesions HEENT: NC/AT, PERRL, EOMI, anicteric sclera, conjunctiva without injection, external ear normal to inspection and nontender, nares patent, moist mucus membranes, dentition intact, no oropharyngeal lesions, neck supple, trachea midline, no LAD, no thyromegaly, no JVD Heart: +S1/S2, irregular, bradycardic, no murmurs/rubs/gallops Lungs: equal air entry bilaterally, no rales/rhonchi/wheezes, sonorous respirations when patient sleeps with witnessed apneic episodes Abd: +BS, soft, NT/ND, no masses/organomegaly/ascites Ext: warm, 2+ pulses in UE/LE bilaterally, no clubbing/cyanosis or edema Neuro: Somnolent, arousable, answers questions appropriately and follows commands, nonfocal, patient AA&O to person and hospital, speech intact, no facial droop, moving all extremities on command with equal strength 5/5 Results & Data Results & Data ([facility]) Vital Signs (Past 12 Hours) Vital Signs Temp Pulse Resp BP Pulse Ox O2 Del Method O2 Flow Rate 09/14/22 04:22 33 C L 09/14/22 03:58 32.8 C L 09/14/22 03:46 46 L 17 140/51 L 99 Nasal Cannula 4 09/14/22 03:43 48 L 17 125/67 98 Nasal Cannula 4 09/14/22 03:30 31.6 C L 09/14/22 03:30 51 L 14 106/58 L 99 Nasal Cannula 4 09/14/22 03:23 50 L 12 133/58 L 100 Nasal Cannula 4 09/14/22 03:06 51 L 15 132/58 L 99 Nasal Cannula 4 09/14/22 02:25 97 Room Air 09/14/22 02:33 33.2 C L 51 L 17 146/72 H 97 Room Air Laboratory Results Laboratory Results WBC 12.27 K/ul (4.8-10.8) H 09/14/22 02:30 RBC 3.81 M/uL (4.70-6.10) L 09/14/22 02:30 Hgb 12.4 g/dl (14.0-18.0) L 09/14/22 02:30 Hct 35.5 % (42.0-52.0) L 09/14/22 02:30 MCV 93.2 fL (80.0-100.0) 09/14/22 02:30 MCH 32.5 pg (25.0-34.0) 09/14/22 02:30 MCHC 34.9 g/dL (32.0-36.0) 09/14/22 02:30 RDW Std Deviation 43.2 fL (36.4-46.3) 09/14/22 02:30 RDW Coeff of Leon 12.6 % (11.5-14.5) 09/14/22 02:30 Plt Count 287 K/uL (130-400) 09/14/22 02:30 MPV 9.3 fL (9.4-12.4) L 09/14/22 02:30 Immature Gran % (Auto) 0.6 % 09/14/22 02:30 Neut % (Auto) 76.0 % 09/14/22 02:30 Lymph % (Auto) 15.5 % 09/14/22 02:30 [place] % (Auto) 5.7 % 09/14/22 02:30 Eos % (Auto) 1.6 % 09/14/22 02:30 Baso % (Auto) 0.6 % 09/14/22 02:30 Neut # (Auto) 9.33 K/uL (1.40-6.50) H 09/14/22 02:30 Lymph # (Auto) 1.90 K/uL (1.2-3.4) 09/14/22 02:30 [place] # (Auto) 0.70 K/uL (0.11-0.59) H 09/14/22 02:30 Eos # (Auto) 0.20 K/uL (0-0.50) 09/14/22 02:30 Baso # (Auto) 0.07 K/uL (0-0.2) 09/14/22 02:30 Immature Gran # (Auto) 0.07 K/uL (0.01-0.20) 09/14/22 02:30 PT 11.4 Seconds (9.0-12.0) 09/14/22 02:30 INR 1.1 (0.9-1.1) 09/14/22 02:30 Sodium 137 mmol/L (136-145) 09/14/22 02:30 Potassium 3.8 mmol/L (3.5-5.1) 09/14/22 02:30 Chloride 101 mmol/L (98-107) 09/14/22 02:30 Carbon Dioxide 30 mmol/L (21-32) 09/14/22 02:30 Anion Gap 6 (3-11) 09/14/22 02:30 BUN 34 mg/dl (6-23) H 09/14/22 02:30 Creatinine 1.39 mg/dl (0.6-1.4) 09/14/22 02:30 Est Cr Clr Drug Dosing 49.9 ml/min 09/14/22 02:30 Est GFR ( Amer) 56.3 ml/min 09/14/22 02:30 Est GFR (Non-Af Amer) 48.5 ml/min 09/14/22 02:30 BUN/Creatinine Ratio 24.5 (10-20) H 09/14/22 02:30 Glucose 161 mg/dl (70-99(Fasting)) H 09/14/22 02:30 POC Glucose 216 mg/dl (70-99) H 09/14/22 04:43 Lactate 0.8 mmol/L (0.4-2.0) 09/14/22 04:49 Calcium 9.0 mg/dl (8.5-10.1) 09/14/22 02:30 Magnesium 2.2 mg/dl (1.7-2.4) 09/14/22 02:30 Total Bilirubin 0.4 mg/dl (0.2-1.0) 09/14/22 02:30 AST 18 U/L (13-39) 09/14/22 02:30 ALT 18 U/L (7-52) 09/14/22 02:30 Alkaline Phosphatase 100 U/L (34-104) 09/14/22 02:30 Troponin I High Sens 4.3 pg/ml (0-20) 09/14/22 02:30 Total Protein 6.7 gm/dl (6.0-8.3) 09/14/22 02:30 Albumin 3.8 gm/dl (3.4-5.0) 09/14/22 02:30 Globulin 2.9 gm/dl (2.5-4.0) 09/14/22 02:30 Albumin/Globulin Ratio 1.3 (0.9-2) 09/14/22 02:30 Procalcitonin < 0.05 ng/ml (0-0.5) 09/14/22 02:30 TSH 2.563 uIu/ml (0.300-4.500) 09/14/22 02:30 Random Cortisol 32.97 mcg/dl 09/14/22 02:30 Urine Color Yellow 09/14/22 03:20 Urine Appearance Clear (Clear) 09/14/22 03:20 Urine pH 6.5 (4.5-7.5) 09/14/22 03:20 Ur Specific [place] 1.018 (1.000-1.030) 09/14/22 03:20 Urine Protein Negative (Negative) 09/14/22 03:20 Urine Glucose (UA) Negative (Negative) 09/14/22 03:20 Urine Ketones Negative (Negative) 09/14/22 03:20 Urine Blood Trace (Negative) H 09/14/22 03:20 Urine Nitrite Negative (Negative) 09/14/22 03:20 Urine Bilirubin Negative (Negative) 09/14/22 03:20 Urine Urobilinogen Negative (Negative) 09/14/22 03:20 Ur Leukocyte Esterase Negative (Negative) 09/14/22 03:20 Urine WBC (Auto) 0 /hpf (0-5) 09/14/22 03:20 Urine RBC (Auto) 5-10 /hpf (0-4) H 09/14/22 03:20 U Hyaline Cast (Auto) 0 /lpf (0-5) 09/14/22 03:20 U Epithel Cells (Auto) 10-20 /lpf (0-5) H 09/14/22 03:20 Urine Bacteria (Auto) Negative (Negative) 09/14/22 03:20 SARS-CoV-2, RNA, NAAT NEGATIVE (NEGATIVE) 09/14/22 03:[address] headper stat readno acute intracranial abnormalities Chest x-rayper my interpretation, poor inspiratory effort, no pneumothorax, infiltrate or congestion ECG Additional Comments: Narrow complex, bradycardic, no acute ischemic changes Critical Care Time 75 minutes PG Care Time/CCT Total # of Minutes Spent Total Time Spent with Patient: Total time spent is greater than 50% in coordination of care (as documented) at patient's floor/unit and/or counseling patient: Coding Level of Care Code None Diagnoses Hypoglycemia E16.2 Hypothermia T68.XXXA Acute alteration in mental status R41.82 Diabetes E11.9 Hyperlipidemia E78.5
[2022-09-14] MEDS ORDERED: GLUCOSE 40% GEL 15 GM TUBE PO PRN ×2 (06:05→08:22)
[2022-09-14] MEDS ORDERED: CARBOHYDRATES FOR HYPOGLYCEMIA PO PRN ×2 (06:05→08:22)
[2022-09-14] MEDS ORDERED: GLUCAGON FOR INJ 1 MG VIAL SQ PRN (06:05)
[2022-09-14] MEDS ORDERED: GLUCOSE 10 TAB/TUBE PO PRN ×2 (06:05→08:22)
[2022-09-14] MEDS ORDERED: ENOXAPARIN INJ 40 MG/0.4 ML SYR SQ ONE (06:05)
[2022-09-14] MEDS ORDERED: ATROPINE SULFATE 0.1 MG/ML 10ML SYR IV PRN (06:05)
[2022-09-14] MEDS ORDERED: DEXTROSE 50% 50 ML SYRINGE IV PRN (06:05)
[2022-09-14] MEDS ORDERED: LACTATED RINGER'S 500 ML IV ONE (06:05)
[2022-09-14] MEDS ORDERED: LACTATED RINGER'S 1,000 ML IV SCH (06:30)
--- NOTE | 2022-09-14 07:14 | Critical Care Consultation ---
Date of Consultation September 14, 2022 Assessment & Plan (1) Hypoglycemia: Impression: 77-year-old male presents with hypoglycemia and hypothermia with asymptomatic bradycardia and confusion. Admitted to ICU for closer monitoring at this time. Neuro - Altered mental statuspatient initially presented with erratic behavior likely due to hypoglycemia. Appears to be improving with protection and glucose and rewarming. He is now mildly confused but calm and cooperative. -CT head negative for acute intracranial finding -Continue to treat underlying causes and expect to resolve Cardiac - Bradycardialikely secondary to hyperthermia. Appears to be improving in rate now 50s to 60s. He has been normotensive has not received intervention at this time. -Patient is on labetalol and considered giving glucagon but held as patient is normotensive and asymptomatic. Appears to be improving with rewarming -Hold antihypertensives/beta-chana for now -Troponin negative, EKG with possible ectopic atrial bradycardia with PVCs -Continuous monitoring on telemetry, atropine if needed Respiratory - No history of pulmonary disease, currently maintaining oxygen saturation on 2 L nasal cannula, weaning. Suspect patient does have underlying sleep apnea as he was reported to have some respiratory pauses while sleeping in the ED. He did not desaturate. Continuous monitoring on pulse ox for now. GI - Diabetic diet RENAL/LYTES - Creatinine within normal limits and no electrolyte abnormalities. Monitor routine BMPs - Strict I's and O's ENDO - Hypoglycemiapatient is type II diabetic and is on insulin therapy as well as Trulicity last taken 1 month ago. Last hemoglobin A1c 6.5 -Per EMS blood sugar initially 36 and received D10, was over 200 on arrival to the ED -Hold on insulin and every hour fingersticks for now -We will transfuse dextrose if needed. Goal blood glucose 1 40-1 80 for now -Monitor in ICU for now HEME - H&H stable, monitor routine CBC ID - No negation for infectious process at this time. Currently holding on antibiotic therapy -Lactate and procalcitonin normal UA unremarkable COVID-19 negative Lyme pending MRSA pending LINES/IV ACCESS - Peripheral IVs DVT PROPHYLAXIS - SCDs Thank you for allowing us to participate in the care of this patient. Please refer to my attending physician's documentation for any further recommendations. (2) Acute alteration in mental status: (3) Hypothermia: (4) Diabetes: (5) Hyperlipidemia: (6) Hypertension: History of Present Illness Attending Physician: Mavis Salas DO History of Present Illness Patient is a 77-year-old male past medical history DM type II, HLD, HTN who presented to the emergency department with confusion, hypoglycemia, hypothermia, and bradycardia. Patient's stated that he was in his usual state of health today and took his insulin injection at 2330. Approximately 15 minutes later he became erratic and confused and was diaphoretic. Patient called EMS who took her blood sugar of 36 on scene and patient was administered D10. In the emergency department, he was found to be hypothermic with a core temp 31.2 Celsius and patient was placed on warming blanket. Repeat glucose of 241. No significant Sarah abnormalities and patient asymptomatic to bradycardia with heart rate in the 40s. EKG with uptake atrial bradycardia was PVCs and troponin within normal limits. CT head negative for acute intracranial findings. He is now being transferred to ICU for further management at this time. Allergies Allergy/AdvReac Type Severity Reaction Status Date / Time lisinopril Allergy Intermediate itching Verified 09/02/22 14:54 and swelling metformin Allergy Intermediate swelling Verified 09/02/22 14:54 empagliflozin AdvReac Mild constipatio Verified 09/02/22 14:54 [From Jardiance] n Home Medications Medication Instructions Recorded Confirmed Type multivitamin (Daily Multi-Vitamin 1 tab PO DAILY 02/05/19 09/02/22 History tablet) aspirin 81 mg tablet 81 mg PO DAILY #90 tabs 08/13/19 09/02/22 History lancets (Accu-Chek Softclix #100 ea 02/24/20 09/02/22 Rx Lancets) cholecalciferol (vitamin D3) 125 125 mcg PO DAILY #90 caps 12/11/20 09/02/22 Rx mcg (5,000 unit) capsule pen needle, diabetic 32 gauge x #100 ea 07/29/21 09/02/22 Rx 1/4" (Sure Comfort Pen Needle) atorvastatin 20 mg tablet 20 mg PO DAILY hyperlipidemia #90 10/14/21 09/02/22 Rx tabs amlodipine 5 mg tablet 5 mg PO DAILY #90 tabs 02/21/22 09/02/22 Rx triamterene 37.5 1 cap PO DAILY #90 caps 02/24/22 09/02/22 Rx mg-hydrochlorothiazide 25 mg capsule blood sugar diagnostic (Accu-Chek See Rx Instructions .Route 03/24/22 09/02/22 Rx Greta Plus test strips) .COMPLEX #100 strips dulaglutide 1.5 mg/0.5 mL 1.5 mg (0.5 mL) subcut Q7D 90 days 04/15/22 09/02/22 Rx subcutaneous pen injector #6.5 mL (Trulicity) insulin glargine 100 unit/mL (3 30 unit (0.3 mL) subcut BID 3 04/17/22 09/02/22 Rx mL) subcutaneous pen months #54 mL labetalol 100 mg tablet 150 mg PO BID #270 tabs 05/02/22 09/02/22 Rx blood-glucose meter (Accu-Chek #1 ea 09/09/22 Rx Greta Plus Meter) Patient History Medical History (Updated 09/14/22 @ 07:03 by DEV Berg) Diabetes Hyperlipidemia Obesity (BMI 30.0-34.9) Tubular adenoma of colon Surgical History No pertinent past surgical history Family History Father Cancer colon cancer Colorectal cancer Sister Cancer liver Lung cancer Mother Cancer Brain cancer Myocardial infarction Family/Other Hypertension Denies family history of Ovarian cancer Prostate cancer Breast cancer Social History Smoking Status: Former smoker Tobacco Type: Smokeless Tobacco (Dip or Chew) Second Hand Exposure: No; Hx Alcohol Use: Yes Alcohol type: beer Hx Substance Use: No Preferred Language: Icelandic Communication Ability: Effective Plate Painter Required: No Beliefs That Will Affect Care: None marital status: Current Living Situation: Spouse current occupational status: retired How many Children do You have: 3 Feels Safe at Home: Yes Childhood Exposure to Second-Hand Smoke: No caffeine: Yes Dental Care, Regularly: No Physical Activity Frequency: Daily Seatbelt Use: always Sunscreen Use: No Assistive Devices: None Review of Systems Review of Systems: Unobtainable due to cognitive status On exam patient is mildly confused but no acute distress. He denies any headache, syncope, fevers, sore throat, recent illness, cough, chest pain, palpitations, shortness of breath, abdominal pain, nausea vomiting or diarrhea, changes in gait, swelling in hands or feet, or changes and urinary frequency or stream. He reports that his he is in his usual state of health other than some pain on the left side of his chest wall where he fractured ribs 2 weeks ago. Physical Exam Constitutional: cooperative and comfortable; no acute distress Eyes: PERRL, conjunctivae normal, anicteric sclerae ENMT: external ear and nose normal, oropharynx normal Neck: trachea midline, no thyromegaly Respiratory: normal respiratory effort, lungs clear to auscultation Cardiovascular: RRR, no murmur, no edema Rate/Rhythm: + bradycardic Heart Sounds: normal S1 and normal S2 Extremities: normal capillary refill; no edema Gastrointestinal (Abdomen): normal bowel sounds, soft, nontender, no hepatosplenomegaly Musculoskeletal: no cyanosis or clubbing, extremities motor strength 5/5 Skin: no rashes, warm and dry Neurologic: PERRL, EOMI, accommodation nl, no face palsy, no dysarthria Psychiatric: Orientation: oriented to person and cooperative; + not oriented to place and + not oriented to time Results & Data Results & Data ([facility]) Vital Signs (Past 12 Hours) Vital Signs Temp Pulse Pulse Resp BP BP Pulse Ox 09/14/22 06:01 34.2 C L 65 18 98 09/14/22 06:01 148/58 H 09/14/22 06:00 34.2 C L 63 15 93 09/14/22 05:58 168/64 H 09/14/22 05:58 34.2 C L 67 20 100 09/14/22 06:05 09/14/22 05:48 34.1 C L 66 18 168/64 H 100 09/14/22 05:30 34 L 15 109/54 L 96 09/14/22 05:15 39 L 16 118/58 L 97 09/14/22 05:39 33.9 C L 09/14/22 05:37 09/14/22 05:00 34 L 15 96 09/14/22 05:00 107/57 L 09/14/22 04:45 34 L 17 96 09/14/22 04:45 104/63 09/14/22 04:31 116/51 L 09/14/22 04:31 43 L 13 94 09/14/22 04:30 40 L 16 94 09/14/22 04:15 50 L 17 110/56 L 100 09/14/22 04:01 49 L 15 111/52 L 95 09/14/22 04:52 33.4 C L 09/14/22 04:22 33 C L 09/14/22 03:58 32.8 C L 09/14/22 03:46 46 L 17 140/51 L 99 09/14/22 03:43 48 L 17 125/67 98 09/14/22 03:30 31.6 C L 09/14/22 03:30 51 L 14 106/58 L 99 09/14/22 03:23 50 L 12 133/58 L 100 09/14/22 03:06 51 L 15 132/58 L 99 09/14/22 02:25 97 09/14/22 02:33 33.2 C L 51 L 17 146/72 H 97 O2 Del Method O2 Flow Rate 09/14/22 06:01 09/14/22 06:01 09/14/22 06:00 09/14/22 05:58 09/14/22 05:58 09/14/22 06:05 Nasal Cannula 2 09/14/22 05:48 Nasal Cannula 2 09/14/22 05:30 Nasal Cannula 3 09/14/22 05:15 Nasal Cannula 3 09/14/22 05:39 09/14/22 05:37 Nasal Cannula 09/14/22 05:00 09/14/22 05:00 09/14/22 04:45 09/14/22 04:45 09/14/22 04:31 09/14/22 04:31 09/14/22 04:30 09/14/22 04:15 Nasal Cannula 4 09/14/22 04:01 Nasal Cannula 4 09/14/22 04:52 09/14/22 04:22 09/14/22 03:58 09/14/22 03:46 Nasal Cannula 4 09/14/22 03:43 Nasal Cannula 4 09/14/22 03:30 09/14/22 03:30 Nasal Cannula 4 09/14/22 03:23 Nasal Cannula 4 09/14/22 03:06 Nasal Cannula 4 09/14/22 02:25 Room Air 09/14/22 02:33 Room Air Coding Level of Care Code INP/OBS CONSULT LVL 2, 35 MIN Diagnoses Hypoglycemia E16.2 Acute alteration in mental status R41.82 Hypothermia T68.XXXA Diabetes E11.9 Hyperlipidemia E78.5 Hypertension I10 Time Spent (min) 40
[2022-09-14 07:30] LABS: Base Excess VBG 4.3 mEq/L; HCO3 VBG 30 mmol/L; Oxygen Saturation VBG 65.4 %; PCO2 VBG 47 mmHg (38-50); PO2 VBG 39 mmHg; pH VBG 7.41 (7.36-7.41)
--- NOTE | 2022-09-14 07:39 | Electrocardiogram Report ---
Test Reason : Blood Pressure : / mmHG Vent. Rate : 050 BPM Atrial Rate : 050 BPM P-R Int : 282 ms QRS Dur : 100 ms QT Int : 484 ms P-R-T Axes : 182 000 018 degrees QTc Int : 441 ms Unusual P axis, possible ectopic atrial bradycardia with Premature supraventricular complexes Abnormal ECG No previous ECGs available Confirmed by Joe Herrera ([id number]) on 09/14/2022 7:39:21 AM Referred By: REFERRED SELF Confirmed By:Kristofer Herrera
--- NOTE | 2022-09-14 07:39 | XRay Report ---
XR chest 1V portable CLINICAL HISTORY: weakness COMPARISON STUDY: Chest radiograph January 31, 2023. FINDINGS: Lung volumes are mildly diminished. There is no pneumothorax or pleural effusion. Multiple displaced left-sided rib fractures are similar to the left rib radiographs of September 02, 2022. Mild cardiomegaly is noted. There is no consolidation to suggest pneumonia. No evidence for pulmonary ludivina a. IMPRESSION: 1. No acute cardiopulmonary findings. 2. Multiple displaced left-sided rib fractures similar to radiographs of September 02, 2022. ACT 112: Negative or not required by law. Electronically signed by: Phani Mcclellan M.D. 09/14/2022 7:38 AM
--- NOTE | 2022-09-14 07:41 | CT Scan Report ---
CT OF THE HEAD WITHOUT CONTRAST CLINICAL HISTORY: Altered mental status. COMPARISON STUDY: No previous studies for comparison. CT DOSE: 537.48 mGy.cm TECHNIQUE: Helical axial images of the head were obtained without IV contrast. Automated exposure con trol was utilized for the study. A dose lowering technique was utilized adhering to the principles o f ALARA. FINDINGS: No acute intracranial hemorrhage, midline shift or mass effect is present. The ventricular system is unremarkable. The basal cisterns are patent. No extra-axial collections are present. There are no findings to suggest acute dural sinus thrombosis or acute territorial infarct. No significant calvarial abnormalities are present. Visualized portions of the sinuses and mastoid air cells are daysi ar. IMPRESSION: No acute intracranial findings. ACT 112: Negative or not required by law. Electronically signed by: Phani Mcclellan M.D. 09/14/2022 7:39 AM
[2022-09-14] MEDS: ATORVASTATIN 20 MG TAB PO SCH (08:10)
[2022-09-14] MEDS: ASPIRIN 81 MG ECTAB PO SCH (08:10)
[2022-09-14] MEDS: ICU Protocol for HYPERglycemia SCH ×3 (08:11→17:05)
[2022-09-14 08:19] LABS: Lyme Ab IgG w/WB Rflx Negative (Negative); Lyme Ab IgM w/WB Rflx Negative (Negative)
[2022-09-14 08:19] LABS: Amphetamines+Metham, Urine Neg (Neg); Barbiturates, Urine Neg (Neg); Benzodiazepine, Urine Neg (Neg); Cocaine, Urine Neg (Neg); MDMA (Ecstacy), Urine Pos (Neg); Methadone, Urine Neg (Neg); Opiate, Urine Neg (Neg); Phencyclidine, Urine Neg (Neg)
[2022-09-14] MEDS: INSULIN ASPART PER UNIT SC SCH ×4 (09:40→21:00)
[2022-09-15] MEDS: ASPIRIN 81 MG ECTAB PO SCH (07:20)
[2022-09-15] MEDS: ATORVASTATIN 20 MG TAB PO SCH (07:20)
[2022-09-15 07:56] LABS: Hematocrit (blood only) 37.3 % (42.0-52.0); Hemoglobin 13.2 g/dl (14.0-18.0); Mean Corpuscular Hgb Conc 35.4 g/dL (32.0-36.0); Mean Corpuscular Volume 90.3 fL (80.0-100.0); Mean Platelet Volume 9.5 fL (9.4-12.4); Platelet Count 309 K/uL (130-400); RDW Coefficient of Variation 12.7 % (11.5-14.5); RDW Standard Deviation 42.3 fL (36.4-46.3); Red Blood Count 4.13 M/uL (4.70-6.10); White Blood Count 8.52 K/ul (4.8-10.8)
[2022-09-15 08:23] LABS: Calcium 9.7 mg/dl (8.5-10.1); Potassium 3.9 mmol/L (3.5-5.1)
[2022-09-15 08:29] LABS: BUN Creatinine Ratio 23.5 (10-20); Creatinine Clr Calc Pharmacy 60.8 ml/min; Est GFR (African American) 70.7 ml/min
[2022-09-15] MEDS: INSULIN ASPART PER UNIT SC SCH ×2 (08:50→12:44)
--- NOTE | 2022-09-16 18:30 | Discharge Summary ---
Date of Service September 16, 2022 Admission HPI Per Admitting Provider Domingo Cerda is a 77yo male with history of DM on insulin therapy, HLP presenting from home with confusion, somnolence, hypoglycemia and hypothermia. History obtained mostly from at bedside and from discussion with ER staff and chart review as patient is somnolent and does not recall events prior to arrival. reports that patient was in his usual state of health today. He ate dinner around 16:30 - had a pork chop, mashed potatoes and gravy, beans and a roll. She reports he finished his dinner and had some ice cream around 20:00. Patient was getting ready for bed and took his insulin injection around 23:30. reports that approximately 15 minutes later patient started behaving very erratically. He started rolling around in the bed, thrashing and screaming. He grabbed at his 's arm and would not respond to questions or open his eyes. He was also very diaphoretic. called EMS. Patient did roll out of bed but did not seem to hit his head. Per EMS blood sugar on arrival = 36. He was given 250 mL of D10 with an increase in blood sugar to 180. Upon arrival to the ER patient hypothermic, bradycardic, adequate oxygenation on room air. A temperature sensing Arreola was placed for core temperature monitoring as well as a bear hugger blanket. Patient with variable heart rate ranging from the 30s to the 50s. External pacer pads placed. Principal Diagnosis Hypoglycemia etiology unclear, possibly secondary to unintentional medication overdose versus significant weight loss that mandate less insulin requirement, versus ongoing hyper catabolic process (possible malignancy) Discharge Data Allergies Allergy/AdvReac Type Severity Reaction Status Date / Time lisinopril Allergy Intermediate itching Verified 09/16/22 09:00 and swelling metformin Allergy Intermediate swelling Verified 09/16/22 09:00 empagliflozin AdvReac Mild constipatio Verified 09/16/22 09:00 [From Jardiance] n Consultations 09/14/22 03:43 ED Decision to Admit Stat 09/14/22 06:05 Consult General Assembler Routine Ordered Studies 09/14/22 02:25 CT head/brain wo con Urgent Hospital Course (1) Hypoglycemia: 77-year-old male with history of diabetes on insulin therapy, hyperlipidemia presenting with acute episode of agitation, somnolence in setting of hypoglyc emia with blood sugar of 36. Patient presently hypothermic, bradycardic. He is somnolent but arousable, answering questions appropriately. The Patient was hypothermic. Rectal temperature upon arrival = 33.2. Temperature sensing Arreola was placed with temperature recorded initially at 32.2. Presently has increased with use of external warming blanket to 33.8. Etiology of hypothermia uncertain . Most likely secondary to hypoglycemic episode. Have checked lactate and procalcitonin both of which are normal. Blood cultures have been sent and negative. No obvious source of infection or sepsis. TSH is normal at 2.56, random cortisol is normal at 32.97. The patient was initially admitted to the ICU, we used warming blanket, gradually mental status has improved. Patient is started on dextrose infusion, gradually serum glucose has improved and patient weaned off from dextrose infusion downgraded to medical floor. Mental status improved to baseline, it is unclear what caused hypoglycemia, since patient is suffering from dementia that is comfortable with a family member including his . It is possible that patient unintentionally overdosed himself with insulin. Moreover, patient reported that he had significant weight loss more than 80 pounds within last year, which can definitely affect his insulin requirement. I reviewed his A1c is within last few years, it seems that his A1c is trending down and currently his A1c is around 6 which indicative of more tight control. At this point the patient was advised to proceed with 20 units of Lantus in case his blood sugar is more than 200-250. Patient also takes Trulicity which can could have contributed to his weight loss. Apparently for the last few days patient's glucometer is disabled. I asked commissioning agent to educate both patient and his and his daughter about the appropriate way of insulin injection and measuring serum glucose before meals and at bedtime prior to discharge the patient was able to obtain a glucometer Etiology of his weight loss is unclear, given his age and comorbidities I have recommended him to follow-up with his PCP for malignancy work-up he lost more than 80 pounds within 1 year. Weight loss could also could be secondary to Trulicity. (2) Hypothermia: Using warming blanket resolved, possibly secondary to hypoglycemia no evidence of ongoing infectious process (3) Acute alteration in mental status: Resolved, patient mental is back to normal, however is seem patient suffering from a short memory loss that is confirmed by family event before the episode of hypoglycemia, the family are instructed to administer his insulin check his blood sugar before meals and at bedtime collect information log book and provided to primary care doctor in 1 to 2 weeks for further adjustment of his insulin regimen, (4) Diabetes: Continue Trulicity, only use Lantus 20 units if the serum glucose is more than 200 250 (5) Hyperlipidemia: Total Time Total Time Spent Total Time Spent (In Minutes): 45 Discharge Plan Discharge Items Patient Disposition: Home - Home Health Services Reason For Visit: HYPOGLYCEMIA, HYPOTHERMIA Discharge Diagnosis: Altered Mental Status secondary to hypoglycemia Activity: Resume your previous activity Lifting: Gradually increase as tolerated Sexual Activity: When tolerated Driving/Machine Use: No limitations Weightbearing: Full weightbearing Non-emergency contact: Primary Care Provider Call non-emergency contact if: you have any medication questions Follow-up/Referrals: Christiano Plaza DO [Primary Care Provider] - 09/22/22 11:30 am Diet: Carb Count or DM1 and Heart Healthy Addtl Attending Provider Instructions: Please check your blood sugar before meal and bed time is your blood sugar is more than 300 or less than 75 please contact your primary care doctor or 911 immediately .If your blood sugar is less than 70 take a a full cup of orange Juice and call 911 or your doctor immediately Please use Lantus only if your blood sugar is more than 250 consistantly Addtl Pediatric Cns Provider Instructions: Please do not take Amlodipine and triamterene hydrochlorothiazide , check your blood pressure on daily basis if the top number is more than 160 or the bottom number is more than 105 call your primary care doctor to resume your blood pressure medications you have significant weightloss please follow with your primary doctor for further work up Pending Studies at Discharge: No Stand-Alone Forms: My [employer] Smoking Cessation Medications and DC Order Prescriptions: Continued (DME) pen needle, diabetic [Sure Comfort Pen Needle] 32 gauge x 1/4" needle See Dose Instructions .ROUTE .MEDSUPPLY Qty: 100 5RF Dose Instruction: As directed Rx Instructions: use 3 daily atorvastatin 20 mg tablet 20 mg PO DAILY Qty: 90 3RF Trulicity 1.5 mg/0.5 mL pen injector 1.5 mg subcut Q7D 90 Days Qty: 6.5 3RF labetalol 100 mg tablet 150 mg PO BID Qty: 270 3RF (DME) blood-glucose meter [Accu-Chek Greta Plus Meter] Misc See Rx Instructions .Route Qty: 1 0RF Rx Instructions: As directed TEST TWICE A DAY E11.69 cholecalciferol (vitamin D3) 125 mcg (5,000 unit) capsule 125 mcg PO DAILY Qty: 90 3RF Accu-Chek Greta Plus test strp Strip See Rx Instructions .ROUTE .COMPLEX Qty: 100 11RF Dose Instruction: TEST BLOOD SUGAR TWICE DAILY Rx Instructions: TEST BLOOD SUGAR TWICE DAILY; E11.65 multivitamin [Daily Multi-Vitamin] tablet 1 tab PO DAILY aspirin 81 mg tablet 81 mg PO DAILY Qty: 90 (DME) lancets [Accu-Chek Softclix Lancets] Misc See Dose Instructions .ROUTE .MEDSUPPLY Qty: 100 3RF Dose Instruction: As directed Rx Instructions: test BID Changed insulin glargine 100 unit/mL (3 mL) insulin pen 20 unit subcut DAILY 90 Days Qty: 27 3RF Rx Instructions: 3 month supply Discontinued triamterene-hydrochlorothiazid 37.5-25 mg capsule 1 cap PO DAILY Qty: 90 3RF amlodipine 5 mg tablet 5 mg PO DAILY Qty: 90 3RF Discharge Orders: Discharge Order (Routine); Ordered 09/15/22 Ordered By: Vasile Alvarado/Other Patient Handouts: Hypoglycemia (Low Blood Sugar), Managing Type 2 Diabetes Admission Data Admit Date/Time: 09/14/22 04:39 Attending Provider: Vasile Gonzalez Admit Provider: Mavis Salas Primary Care Provider: Christiano Plaza Other Providers: Mavis Salas ; Sheng Rebolledo Other Interventions: Discharge Summary Assessment (RN) Last Done: 09/15/22 13:49 Coding Level of Care Code HOSP INP/OBS DISCH >30 MIN Diagnoses Hypoglycemia E16.2 Hypothermia T68.XXXA Acute alteration in mental status R41.82 Diabetes E11.9 Hyperlipidemia E78.5
[2022-09-18 15:31] LABS: MDA negative; MDEA negative; MDMA (Ecstasy) Urine, Confirm negative
== END 2022-09-15 14:29 | disposition home health service (06) | DRG 948 ==
LOC: ED 02:14 → 1E 04:39 → SUATTDRO 04:39 → 1E 05:37 → 3W 16:55